=== PATIENT | female | born 1990 | race Caucasian/White ===

== ENCOUNTER 2016-06-30 06:47 | Observation (INO) | payer BC ==
[2016-06-30] MEDS ORDERED: Sodium Chloride 0.9% 10 ML Syringe FLUSH PRN (07:26)
[2016-06-30] MEDS ORDERED: Ondansetron 4 MG/2 ML SDV IVPUSH ONE ×2 (07:26→08:54)
[2016-06-30] MEDS ORDERED: HYDROmorphone 2 MG/ML Syringe IVPUSH ONE ×2 (07:26→09:47)
[2016-06-30] MEDS ORDERED: Sodium Chloride 0.9% 1,000 ML IV ONE ×2 (07:26→09:46)
[2016-06-30] MEDS ORDERED: Famotidine 20 MG/2 ML SDV IVPUSH ONE (07:26)
[2016-06-30] MEDS ORDERED: Sodium Chloride 0.9% 2.5 ML Syringe FLUSH PRN (07:26)
--- NOTE | 2016-06-30 07:30 | EDM.PDOC ---
ED HPI GENERAL MEDICAL PROBLEM - General Chief Complaint: Abdominal Pain Stated Complaint: ABDOMINAL PAIN Time Seen by Provider: 06/30/16 07:20 - History of Present Illness INITIAL COMMENTS - FREE TEXT/NARRATIVE: HISTORY AND PHYSICAL: History of present illness: The patient is a 26-year-old female with a diagnosis of gallstones back in March who also had an EGD here on April 11 and diagnosed with mild gastritis and esophagitis who was about to have her gallbladder removed with Dr. Fernandez but do to some "breast issues" that was put off until those were settled. She presents tonight with upper abdominal pain that started yesterday associated with intractable vomiting through the night. She says her pain is mostly epigastric but does radiate right and left and there is no lower abdominal pain. She has no flank pain dysuria frequency or hematuria. She's had no documented fevers but has had chills and has no cough or chest pain. She does not have any medication for nausea at home and did not take anything for pain as it would not stay down. The patient states the pain and vomiting similar to her gallbladder flareups. Patient denies any black or bloody stools and no the ground emesis or blood in the emesis. Patient states she is always more on the constipated side Review of systems: As per history of present illness and below otherwise all systems reviewed and negative. Past medical history: As per history of present illness and as reviewed below otherwise noncontributory. Surgical history: As per history of present illness and as reviewed below otherwise noncontributory. Social history: No reported history of drug or alcohol abuse. Family history: As per history of present illness and as reviewed below otherwise noncontributory. Physical exam: General: Well-developed well-nourished female looks uncomfortable in the room but is nontoxic and vital signs have been noted by me HEENT: Atraumatic, normocephalic, pupils reactive, negative for conjunctival pallor or scleral icterus, mucous membranes tacky, throat clear, neck supple, nontender, trachea midline. Lungs: Clear to auscultation, breath sounds equal bilaterally, chest nontender. Heart: S1S2, regular, negative for clicks, rubs, or JVD. Abdomen: Soft, nondistended, hypoactive bowel sounds, there is no tympany on percussion, there is tenderness on even mild palpation in the epigastrium and only slightly right and left upper abdomen area and there is some voluntary guarding but no involuntary guarding or rebound, there are no masses. Negative for masses or hepatosplenomegaly. Negative for costovertebral tenderness. Pelvis: Stable nontender. Genitourinary: Deferred. Rectal: Deferred. Extremities: Atraumatic, negative for cords or calf pain. Neurovascular unremarkable. Neuro: Awake, alert, oriented. Cranial nerves II through XII unremarkable. Cerebellum unremarkable. Motor and sensory unremarkable throughout. Exam nonfocal. Diagnostics: CBC CMP amylase lipase UA UCG CT scan of the abdomen and pelvis Therapeutics: IV fluids Zofran Pepcid Dilaudid Reglan Benadryl 0939: Case was discussed with Dr. Fernandez who knows this patient and he is currently out of town but is aware of the case now. He requests that Dr. Law come and see the patient 0941: Dr. Law is aware of this case and will come and evaluate the patient for further testing and care. Patient is aware of this plan. I would try Reglan Benadryl for her nausea and give her another dose of Dilaudid 1015: Dr. Law has seen the patient and would like her to be admitted as an observation patient for intractable pain and vomiting. She will decide further testing and care plan from there. Patient is aware of this and agrees Impression: Intractable pain and vomiting with history of gallstones Definitive disposition and diagnosis as appropriate pending reevaluation and review of above. Upper Abdominal Pain Score (Numeric/FACES): 8 - Related Data Allergies Allergy/AdvReac Type Severity Reaction Status Date / Time bacitracin Allergy Rash Verified 06/30/16 06:54 [From Neosporin ([id number])] bacitracin zinc Allergy Rash Verified 06/30/16 06:54 [From Neosporin ([id number])] latex Allergy Hives Verified 06/30/16 06:54 neomycin sulfate Allergy Rash Verified 06/30/16 06:54 [From Neosporin ([id number])] polymyxin B Allergy Rash Verified 06/30/16 06:54 [From Neosporin ([id number])] venom-honey bee Allergy Anaphylactic Verified 06/30/16 06:54 [bee venom (honey bee)] Shock Home Meds: Home Meds EPINEPHrine [Epipen 2-Adam] 1 injection SUBCUT ASDIRECTED PRN 04/09/16 [History] Ferrous Sulfate [Iron] 1 tab PO DAILY 04/09/16 [History] Melatonin 6 tab PO BEDTIME PRN 04/09/16 [History] Omeprazole 20 mg PO DAILY 04/09/16 [History] PNV95/Ferrous Fumarate/FA [ Vitamins Tablet] 1 tab PO DAILY 04/09/16 [ History] Past Medical History - Past Health History Medical/Surgical History: Denies Medical/Surgical History HEENT History: Reports: Other (see below) Other HEENT History: wears glasses/contacts Respiratory History: Reports: Asthma Gastrointestinal History: Reports: GERD Genitourinary History: [employer]ATING [employer] WORK[employer] History: Reports: Neurological History: Reports: Migraines Psychiatric History: Reports: PTSD Hematologic History: Reports: Other (see below) Other Hematologic History: Clotting problems - Past Surgical History Head Surgeries/Procedures: Reports: None HEENT Surgical History: Reports: Adenoidectomy, Myringotomy w tube(s), Tonsillectomy GI Surgical History: Reports: Bariatric procedure Social & Family History - Family History Family Medical History: Noncontributory - Tobacco Use Smoking Status *Q: Never Smoker Second Hand Smoke Exposure: No - Caffeine Use Caffeine Use: Reports: Coffee Caffeine Use Comment: 2cups/day - Recreational Drug Use Recreational Drug Use: No ED ROS GENERAL - Review of Systems Review Of Systems: ROS reveals no pertinent complaints other than HPI. ED EXAM, GENERAL - Physical Exam Exam: See Below (See dictation) Course - Vital Signs Last Recorded V/S: Last Vital Signs Temp 37.0 C 06/30/16 06:50 Pulse 71 06/30/16 06:50 Resp 18 06/30/16 06:50 BP 117/67 06/30/16 06:50 Pulse Ox 100 06/30/16 06:50 - Orders/Labs/Meds Orders: Active Orders 24 hr Category Date Time Status Patient Status [ADT] Stat ADT 06/30/16 10:20 Ordered Sodium Chloride 0.9% [Normal Saline] 1,000 ml Med 06/30/16 09:46 Active IV STAT Sodium Chloride 0.9% [Saline Flush] Med 06/30/16 07:26 Active 10 ml FLUSH ASDIRECTED PRN Sodium Chloride 0.9% [Saline Flush] Med 06/30/16 07:26 Active 2.5 ml FLUSH ASDIRECTED PRN Saline Lock Insert [OM.PC] Stat Oth 06/30/16 07:25 Ordered Medication Orders Sodium Chloride (Normal Saline) 1,000 mls @ 999 mls/hr IV STAT ONE Stop: 06/30/16 10:46 Last Admin: 06/30/16 10:08 Dose: 999 mls/hr Sodium Chloride (Saline Flush) 10 ml FLUSH ASDIRECTED PRN PRN Reason: Keep Vein Open Last Admin: 06/30/16 07:41 Dose: 10 ml Sodium Chloride (Saline Flush) 2.5 ml FLUSH ASDIRECTED PRN PRN Reason: Keep Vein Open Last Admin: 06/30/16 07:46 Dose: 2.5 ml Labs: Laboratory Tests 06/30/16 06/30/16 06/30/16 Range/Units 07:05 07:20 07:35 WBC 6.18 (4.0-11.0) K/uL RBC 4.81 (4.30-5.90) M/uL Hgb 12.8 (12.0-16.0) g/dL Hct 39.1 (36.0-46.0) % MCV 81.3 (80.0-98.0) fL MCH 26.6 L (27.0-32.0) pg MCHC 32.7 (31.0-37.0) g/dL RDW Std Deviation 38.1 (28.0-62.0) fl RDW Coeff of Jossy 13 (11.0-15.0) % Plt Count 203 (150-400) K/uL MPV 12.60 H (7.40-12.00) fL Neut % (Auto) 73.3 (48.0-80.0) % Lymph % (Auto) 18.9 (16.0-40.0) % [place] % (Auto) 7.4 (0.0-15.0) % Eos % (Auto) 0.2 (0.0-7.0) % Baso % (Auto) 0.2 (0.0-1.5) % Neut # 4.5 (1.4-5.7) K/uL Lymph # 1.2 (0.6-2.4) K/uL [place] # 0.5 (0.0-0.8) K/uL Eos # 0.0 (0.0-0.7) K/uL Baso # 0.0 (0.0-0.1) K/uL Nucleated RBC % 0.0 /100WBC Nucleated RBCs # 0 K/uL Sodium (136-146) mmol/L Potassium (3.5-5.1) mmol/L Chloride (98-110) mmol/L Carbon Dioxide (21-31) mmol/L BUN (6.0-23.0) mg/dL Creatinine (0.6-1.5) mg/dL Est Cr Clr Drug Dosing mL/min Estimated GFR (MDRD) ml/min Glucose (60-110) mg/dL Calcium (8.8-10.8) mg/dL Total Bilirubin (0.1-1.5) mg/dL AST (5-40) IU/L ALT (8-54) IU/L Alkaline Phosphatase (40-150) Total Protein (6.0-8.0) g/dL Albumin (3.5-5.0) g/dL Globulin (2.0-3.5) g/dL Albumin/Globulin Ratio (1.3-2.8) Amylase (10-90) U/L Lipase (7-80) U/L Urine Color YELLOW Urine Appearance CLEAR Urine pH 6.0 (5.0-8.0) Ur Specific [place] 1.025 (1.001-1.035) Urine Protein NEGATIVE (NEGATIVE) mg/dL Urine Glucose (UA) NEGATIVE (NEGATIVE) mg/dL Urine Ketones 15 H (NEGATIVE) mg/dL Urine Occult Blood NEGATIVE (NEGATIVE) Urine Nitrite NEGATIVE (NEGATIVE) Urine Bilirubin SMALL H (NEGATIVE) Urine Urobilinogen 4.0 H (<2.0) EU/dL Ur Leukocyte Esterase NEGATIVE (NEGATIVE) Urine RBC 0-2 (0-2/HPF) Urine WBC 0-2 (0-5/HPF) Ur Epithelial Cells FEW (NONE-FEW) Urine Bacteria FEW (NEGATIVE) Urine HCG, Qual NEGATIVE (NEGATIVE) 06/30/16 Range/Units 07:35 WBC (4.0-11.0) K/uL RBC (4.30-5.90) M/uL Hgb (12.0-16.0) g/dL Hct (36.0-46.0) % MCV (80.0-98.0) fL MCH (27.0-32.0) pg MCHC (31.0-37.0) g/dL RDW Std Deviation (28.0-62.0) fl RDW Coeff of Jossy (11.0-15.0) % Plt Count (150-400) K/uL MPV (7.40-12.00) fL Neut % (Auto) (48.0-80.0) % Lymph % (Auto) (16.0-40.0) % [place] % (Auto) (0.0-15.0) % Eos % (Auto) (0.0-7.0) % Baso % (Auto) (0.0-1.5) % Neut # (1.4-5.7) K/uL Lymph # (0.6-2.4) K/uL [place] # (0.0-0.8) K/uL Eos # (0.0-0.7) K/uL Baso # (0.0-0.1) K/uL Nucleated RBC % /100WBC Nucleated RBCs # K/uL Sodium 141 (136-146) mmol/L Potassium 3.6 (3.5-5.1) mmol/L Chloride 108 (98-110) mmol/L Carbon Dioxide 23 (21-31) mmol/L BUN 16 (6.0-23.0) mg/dL Creatinine 0.7 (0.6-1.5) mg/dL Est Cr Clr Drug Dosing 101.14 mL/min Estimated GFR (MDRD) > 60.0 ml/min Glucose 105 (60-110) mg/dL Calcium 9.5 (8.8-10.8) mg/dL Total Bilirubin 1.5 (0.1-1.5) mg/dL AST 627 H (5-40) IU/L ALT 830 H (8-54) IU/L Alkaline Phosphatase 142 (40-150) Total Protein 7.8 (6.0-8.0) g/dL Albumin 4.6 (3.5-5.0) g/dL Globulin 3.2 (2.0-3.5) g/dL Albumin/Globulin Ratio 1.4 (1.3-2.8) Amylase 53 (10-90) U/L Lipase 66 (7-80) U/L Urine Color Urine Appearance Urine pH (5.0-8.0) Ur Specific [place] (1.001-1.035) Urine Protein (NEGATIVE) mg/dL Urine Glucose (UA) (NEGATIVE) mg/dL Urine Ketones (NEGATIVE) mg/dL Urine Occult Blood (NEGATIVE) Urine Nitrite (NEGATIVE) Urine Bilirubin (NEGATIVE) Urine Urobilinogen (<2.0) EU/dL Ur Leukocyte Esterase (NEGATIVE) Urine RBC (0-2/HPF) Urine WBC (0-5/HPF) Ur Epithelial Cells (NONE-FEW) Urine Bacteria (NEGATIVE) Urine HCG, Qual (NEGATIVE) Meds: Medications Generic Name Dose Route Start Last Admin Trade Name Freq PRN Reason Stop Dose Admin Sodium Chloride 1,000 mls @ 999 mls/hr 06/30/16 09:46 06/30/16 10:08 Normal Saline IV 06/30/16 10:46 999 mls/hr STAT ONE Administration Sodium Chloride 10 ml 06/30/16 07:26 06/30/16 07:41 Saline Flush FLUSH 10 ml ASDIRECTED PRN Administration Keep Vein Open Sodium Chloride 2.5 ml 06/30/16 07:26 06/30/16 07:46 Saline Flush FLUSH 2.5 ml ASDIRECTED PRN Administration Keep Vein Open Discontinued Medications Generic Name Dose Route Start Last Admin Trade Name Freq PRN Reason Stop Dose Admin Diphenhydramine HCl 25 mg 06/30/16 09:46 06/30/16 10:03 Benadryl IVPUSH 06/30/16 09:47 25 mg ONETIME ONE Administration Famotidine 20 mg 06/30/16 07:26 06/30/16 07:39 Pepcid IVPUSH 06/30/16 07:27 20 mg ONETIME ONE Administration Hydromorphone HCl 1 mg 06/30/16 07:26 06/30/16 08:02 Dilaudid IVPUSH 06/30/16 07:27 1 mg ONETIME ONE Administration Hydromorphone HCl 1 mg 06/30/16 09:47 06/30/16 10:14 Dilaudid IVPUSH 06/30/16 09:48 1 mg ONETIME ONE Administration Sodium Chloride 1,000 mls @ 999 mls/hr 06/30/16 07:26 06/30/16 07:39 Normal Saline IV 06/30/16 08:26 999 mls/hr STAT ONE Administration Iopamidol 100 ml 06/30/16 07:49 06/30/16 07:52 Isovue Multipack-370 (76%) IVPUSH 06/30/16 07:50 65 ml ONETIME STA Administration Metoclopramide HCl 10 mg 06/30/16 09:46 06/30/16 10:03 Reglan IV 06/30/16 09:47 10 mg ONETIME ONE Administration Ondansetron HCl 4 mg 06/30/16 07:26 06/30/16 07:39 Zofran IVPUSH 06/30/16 07:27 4 mg ONETIME ONE Administration Ondansetron HCl 4 mg 06/30/16 08:54 06/30/16 08:58 Zofran IVPUSH 06/30/16 08:55 4 mg ONETIME ONE Administration Departure - Departure Time of Disposition: 10:23 Disposition: Refer to Observation Condition: fair Clinical Impression: Vomiting Qualifiers: Vomiting type: unspecified Vomiting Intractability: intractable Nausea presence : with nausea Qualified Code(s): R11.2 - Nausea with vomiting, unspecified Abdominal pain Qualifiers: Abdominal location: epigastric Qualified Code(s): R10.13 - Epigastric pain Forms: ED Department Discharge - My Orders Last 24 Hours: My Active Orders 06/30/16 07:25 Saline Lock Insert [OM.PC] Stat 06/30/16 07:26 Sodium Chloride 0.9% [Saline Flush] 10 ml FLUSH ASDIRECTED PRN Sodium Chloride 0.9% [Saline Flush] 2.5 ml FLUSH ASDIRECTED PRN 06/30/16 09:46 Sodium Chloride 0.9% [Normal Saline] 1,000 ml IV STAT 06/30/16 10:20 Patient Status [ADT] Stat - Assessment/Plan Last 24 Hours: My Active Orders 06/30/16 07:25 Saline Lock Insert [OM.PC] Stat 06/30/16 07:26 Sodium Chloride 0.9% [Saline Flush] 10 ml FLUSH ASDIRECTED PRN Sodium Chloride 0.9% [Saline Flush] 2.5 ml FLUSH ASDIRECTED PRN 06/30/16 09:46 Sodium Chloride 0.9% [Normal Saline] 1,000 ml IV STAT 06/30/16 10:20 Patient Status [ADT] Stat
[2016-06-30] MEDS ORDERED: Iopamidol 755 MG/ML 500 ML Multipack Bottle IVPUSH STA (07:49)
[2016-06-30 08:23] LABS: CHLORIDE,CL 108 mmol/L (98-110); SODIUM,NA 141 mmol/L (136-146)
--- NOTE | 2016-06-30 09:32 | CT ---
CT of the abdomen and pelvis with contrast. HISTORY: Pain TECHNIQUE: Axial CT images were obtained of the abdomen and pelvis following administration of 65 mL of Isovue-370 without complication. Coronal and sagittal reconstructions obtained. FINDINGS: The lung bases are clear, no pleural effusion. The liver, spleen, and adrenal glands appear normal. There is a trace periportal edema. There is a s mall amount of pericholecystic fluid also noted with gallstones noted within the gallbladder. The ki dneys enhance and function symmetrically without evidence of obstructive uropathy. No bulky retroper itoneal lymphadenopathy or abdominal ascites. The large and small bowel are normal in caliber without evidence of obstruction. No focal pericoloni c inflammation. Appendix appears normal. Postsurgical changes are noted secondary to gastric sleeve. The urinary bladder is decompressed. The uterus and ovaries appear grossly normal. No suspicious os seous abnormalities identified. IMPRESSION: 1. Cholelithiasis with mild pericholecystic fluid, correlate for acute cholecystitis. 2. Otherwise grossly unremarkable CT abdomen and pelvis.
[2016-06-30] MEDS ORDERED: diphenhydrAMINE 50 MG/ML SDV IVPUSH ONE (09:46)
[2016-06-30] MEDS ORDERED: Metoclopramide 10 MG/2 ML SDV IV ONE (09:46)
[2016-06-30] MEDS ORDERED: Metoclopramide 10 MG/2 ML SDV IVPUSH PRN (10:21)
[2016-06-30] MEDS ORDERED: diphenhydrAMINE 50 MG/ML SDV IVPUSH PRN (10:21)
[2016-06-30] MEDS ORDERED: Acetaminophen/HYDROcodone 325-5 MG Tab PO PRN (10:21)
[2016-06-30] MEDS ORDERED: Ondansetron 4 MG/2 ML SDV IVPUSH PRN (10:21)
[2016-06-30] MEDS ORDERED: Promethazine 25 MG/ML SDV IM PRN (10:25)
[2016-06-30] MEDS ORDERED: Scopolamine 1.5 MG Transdermal Patch TRDERM PRN (10:26)
[2016-06-30] MEDS ORDERED: Dextrose 5%-Lactated Ringers 1,000 ML IV SCH (10:30)
--- NOTE | 2016-06-30 13:31 | NM ---
EXAMINATION: Nuclear medicine hepatobiliary study ([facility]) HISTORY: Rule out cholecystitis or biliary obstruction. Pain. PROCEDURE: Following intravenous administration of 3.9 mCi of technetium 99m Choletec, dynamic images were obt ained up to one-hour post injection. FINDINGS: The initial dynamic images demonstrates clearance of the tracer from the blood pool with the prompt tracer uptake by the liver. No activity is noted within the gallbladder. No significant activity is also noted within the biliary tree or small bowel. IMPRESSION: 1. The gallbladder is not visualized, this could be secondary to cystic duct obstruction/acute renee cystitis. 2. The common bile duct is also not well visualized with no activity in the small bowel, this could represent biliary obstruction. However the patient also received opiates, which could also explain n o emptying into the small bowel.
[2016-06-30] MEDS: HYDROmorphone/Normal Saline 6 MG/30 ML PCA Vial IV PRN ×2 (13:51→16:14)
[2016-06-30] MEDS ORDERED: Piperacillin/Tazobactam 3.375 GM in Sodium Chloride 0.9% 50 ML IV SCH (14:00)
[2016-06-30 16:52] LABS: CHLORIDE,CL 111 mmol/L (98-110); SODIUM,NA 140 mmol/L (136-146)
[2016-06-30 17:00] VITALS: BP 118/70
--- NOTE | 2016-06-30 18:37 | PCM.HP ---
H&P History of Present Illness - General Date of Service: 06/30/16 Admit Problem/Dx: Admission Diagnosis/Problem Admission Diagnosis/Problem Nausea and vomiting Source of Information: Patient History Limitations: Reports: No limitations - History of Present Illness Initial Comments - Free Text/Narative: Patient is a 26 yo female who presented with 1 day history of epigastric pain associated with intractable nausea and vomiting. She has a history of a gastric sleeve performed in [place] in either [id number]. She had known choledocholithiasis and was going to have an elective cholecystectomy after genetic testing for BRCA mutation. She developed sharp upper abdominal pain and intractable nausea and vomiting last evening. She presented to the ED. She denies fevers, chills, chest pain, SOB or diarrhea. She had a CT of the abdomen pelvis that showed mild pericholecystic fluid. Upper Abdominal Pain Score (Numeric/FACES): 1 - Related Data Allergies/Adverse Reactions: Allergies Allergy/AdvReac Type Severity Reaction Status Date / Time bacitracin Allergy Rash Verified 06/30/16 06:54 [From Neosporin ([id number])] bacitracin zinc Allergy Rash Verified 06/30/16 06:54 [From Neosporin ([id number])] latex Allergy Hives Verified 06/30/16 06:54 neomycin sulfate Allergy Rash Verified 06/30/16 06:54 [From Neosporin ([id number])] polymyxin B Allergy Rash Verified 06/30/16 06:54 [From Neosporin ([id number])] venom-honey bee Allergy Anaphylactic Verified 06/30/16 06:54 [bee venom (honey bee)] Shock Home Medications: Home Meds EPINEPHrine [Epipen 2-Adam] 1 injection SUBCUT ASDIRECTED PRN 04/09/16 [History] Ferrous Sulfate [Iron] 1 tab PO DAILY 04/09/16 [History] Melatonin 6 tab PO BEDTIME PRN 04/09/16 [History] Omeprazole 20 mg PO DAILY 04/09/16 [History] PNV95/Ferrous Fumarate/FA [ Vitamins Tablet] 1 tab PO DAILY 04/09/16 [ History] Past Medical History - Past Health History Medical/Surgical History: Denies Medical/Surgical History HEENT History: Reports: Other (see below) Other HEENT History: wears glasses/contacts Respiratory History: Reports: Asthma Gastrointestinal History: Reports: GERD Genitourinary History: [employer] SAL[employer]ERSON History: Reports: Neurological History: Reports: Migraines Psychiatric History: Reports: PTSD Hematologic History: Reports: Other (see below) Other Hematologic History: Clotting problems - Past Surgical History Head Surgeries/Procedures: Reports: None HEENT Surgical History: Reports: Adenoidectomy, Myringotomy w tube(s), Tonsillectomy GI Surgical History: Reports: Bariatric procedure, Other (see below) Other GI Surgeries/Procedures: [place]. Social & Family History - Family History Family Medical History: Noncontributory - Tobacco Use Smoking Status *Q: Never Smoker Second Hand Smoke Exposure: No - Caffeine Use Caffeine Use: Reports: Coffee Caffeine Use Comment: 2cups/day - Recreational Drug Use Recreational Drug Use: No H&P Review of Systems - Review of Systems: Review Of Systems: See Below General: Reports: malaise, fatigue, decreased appetite HEENT: Reports: no symptoms Pulmonary: Reports: No Symptoms Cardiovascular: Reports: no symptoms Gastrointestinal: Reports: Abdominal pain, Decreased appetite, Nausea, Vomiting Genitourinary: Reports: no symptoms Musculoskeletal: Reports: no symptoms Skin: Reports: no symptoms Exam - Exam Exam: See Below - Vital Signs Vital Signs: Last Vital Signs Temp 36.6 C 06/30/16 16:00 Pulse 72 06/30/16 10:57 Resp 16 06/30/16 16:00 BP 118/70 06/30/16 16:00 Pulse Ox 96 06/30/16 16:00 Weight: 57.017 kg - Exam General: alert, oriented, mild distress HEENT: Conjunctiva clear, Hearing intact, Mucosa moist & pink, Posterior pharynx clear Neck: supple Lungs: Clear to auscultation, Normal respiratory effort Cardiovascular: regular rate, regular rhythm Abdomen: soft, other (Mild to moderate abdominal pain in epigastric area. No murphys sign. ) Back Exam: normal inspection Extremities: normal inspection - Patient Data Lab Results last 24 hrs: Laboratory Results - last 24 hr 06/30/16 Range/Units 16:21 Sodium 140 (136-146) mmol/L Potassium 3.7 (3.5-5.1) mmol/L Chloride 111 H (98-110) mmol/L Carbon Dioxide 23 (21-31) mmol/L BUN 8 (6.0-23.0) mg/dL Creatinine 0.6 (0.6-1.5) mg/dL Est Cr Clr Drug Dosing 126.73 mL/min Estimated GFR (MDRD) > 60.0 ml/min Glucose 105 (60-110) mg/dL Calcium 8.2 L (8.8-10.8) mg/dL Total Bilirubin 2.1 H (0.1-1.5) mg/dL AST 582 H (5-40) IU/L ALT 751 H (8-54) IU/L Alkaline Phosphatase 133 (40-150) Total Protein 6.0 (6.0-8.0) g/dL Albumin 3.6 (3.5-5.0) g/dL Globulin 2.4 (2.0-3.5) g/dL Albumin/Globulin Ratio 1.5 (1.3-2.8) Result Diagrams: 06/30/16 07:35 06/30/16 16:21 *Q Meaningful Use (ADM) - VTE *Q VTE Criteria *Q: - Stroke *Q Stroke Criteria *Q: - AMI *Q AMI Criteria *Q: - Problem List (1) Elevated LFTs SNOMED Code(s): 667377321 ICD Code: R94.5 - ABNORMAL RESULTS OF LIVER FUNCTION STUDIES Status: Acute Current Visit: Yes (2) Choledocholithiasis SNOMED Code(s): 459980121 ICD Code: K80.50 - CALCULUS OF BILE DUCT W/O CHOLANGITIS OR CHOLECYST W/O OBST Status: Acute Current Visit: Yes (3) Acute cholecystitis SNOMED Code(s): 09673453 ICD Code: K81.0 - ACUTE CHOLECYSTITIS Status: Acute Current Visit: Yes (4) Elevated bilirubin SNOMED Code(s): 023931804 ICD Code: R17 - UNSPECIFIED JAUNDICE Status: Acute Current Visit: Yes Problem List Initiated/Reviewed/Updated: Yes Orders Last 24hrs: Active Orders 24 hr Category Date Time Status Patient Status [ADT] Routine ADT 06/30/16 10:21 Active Ambulate [RC] ASDIRECTED Care 06/30/16 10:21 Active Intake and Output [RC] Q12H Care 06/30/16 10:21 Active Oxygen Therapy [RC] PRN Care 06/30/16 10:21 Active Pulse Oximetry [RC] CONTINUOUS Care 06/30/16 10:21 Active RT Incentive Spirometry [RC] ASDIRECTED Care 06/30/16 10:21 Active Nothing Per Oral Diet [DIET] Diet 06/30/16 Lunch Active Abdomen w wo Cont [MR] Urgent Exams 06/30/16 13:54 Ordered CBC WITH AUTO DIFF [HEME] AM Lab 07/01/16 05:11 Ordered COMPREHENSIVE METABOLIC PN,CMP [CHEM] AM Lab 07/01/16 05:11 Ordered MAGNESIUM [CHEM] AM Lab 07/01/16 05:11 Ordered PHOSPHORUS [CHEM] AM Lab 07/01/16 05:11 Ordered Acetaminophen/HYDROcodone [[place] 325-5 MG] Med 06/30/16 10:21 Active 2 tab PO Q4H PRN Dextrose 5%-Lactated Ringers 1,000 ml Med 06/30/16 10:30 Active IV ASDIRECTED HYDROmorphone/Normal Saline [Dilaudid CHILDR[employer] PROGRAM COORDINATOR 6 MG in NS 30 Med 06/30/16 10:26 Active ML] 6 mg IV ASDIRECTED PRN Metoclopramide [Reglan] Med 06/30/16 10:21 Active 10 mg IVPUSH Q6H PRN Ondansetron [Zofran] Med 06/30/16 10:21 Active 4 mg IVPUSH Q4H PRN Piperacillin/Tazobactam [Piperacil-Tazobact] 3.375 gm Med 06/30/16 14:00 Active Sodium Chloride 0.9% [Normal Saline] 50 ml IV Q8H Promethazine [Phenergan] Med 06/30/16 10:25 Active 12.5 mg IM Q4H PRN Scopolamine [Transderm-Scop] Med 06/30/16 10:26 Active 1.5 mg TRDERM Q72H PRN diphenhydrAMINE [Benadryl] Med 06/30/16 10:21 Active 25 mg IVPUSH Q4H PRN Resuscitation Status Routine Resus Stat 06/30/16 10:21 Ordered Medication Orders Acetaminophen/Hydrocodone Bitart ([place] 325-5 Mg) 2 tab PO Q4H PRN PRN Reason: Pain (moderate 4-6) Diphenhydramine HCl (Benadryl) 25 mg IVPUSH Q4H PRN PRN Reason: Itching Hydromorphone HCl (Dilaudid [employer] Clerk 6 Mg In Ns 30 Ml) 6 mg IV ASDIRECTED PRN; Protocol PRN Reason: Abdominal Pain Last Admin: 06/30/16 16:14 Dose: 6 mg Admin: 06/30/16 13:51 Dose: 6 mg Dextrose/Lactated Ringer's (Dextrose 5%-Lactated Ringers) 1,000 mls @ 125 mls/ hr IV ASDIRECTED BENOIT Last Admin: 06/30/16 11:04 Dose: 125 mls/hr Piperacillin Sod/Tazobactam (Sod 3.375 gm/ Sodium Chloride) 50 mls @ 100 mls/ hr IV Q8H [facility] Last Admin: 06/30/16 14:31 Dose: 100 mls/hr Metoclopramide HCl (Reglan) 10 mg IVPUSH Q6H PRN PRN Reason: Nausea/Vomiting Ondansetron HCl (Zofran) 4 mg IVPUSH Q4H PRN PRN Reason: Nausea/Vomiting Last Admin: 06/30/16 13:31 Dose: 4 mg Promethazine HCl (Phenergan) 12.5 mg IM Q4H PRN PRN Reason: Nausea/Vomiting Scopolamine (Transderm-Scop) 1.5 mg TRDERM Q72H PRN PRN Reason: Nausea/Vomiting Last Admin: 06/30/16 10:58 Dose: 1.5 mg Sodium Chloride (Saline Flush) 10 ml FLUSH ASDIRECTED PRN PRN Reason: Keep Vein Open Last Admin: 06/30/16 07:41 Dose: 10 ml Sodium Chloride (Saline Flush) 2.5 ml FLUSH ASDIRECTED PRN PRN Reason: Keep Vein Open Last Admin: 06/30/16 07:46 Dose: 2.5 ml Assessment/Plan Comment:: A HIDA was obtained that showed no filling of the GB and CBD. At the time, however, she had received Dilaudid and this could have skewed the results. An MRCp was ordered but cancelled due to surgical carine that were placed in [place] (unknown if these are MRI compatible). Repeat am labs showed slightly bilirubin elevation and slightly lower LFTs. Her pain, nausea and vomiting have slightly improved. Given my concern for possible choledocholithiasis in the light of elevated LFTs and a rising bilirubin I feel the best next step is to transfer her to a facility with ERCP capabilities. I discussed her case with the GI physician and hospitalists and frannie who have accepted her.
--- NOTE | 2016-07-07 09:14 | HP ---
DATE OF : 1990 PRIMARY CARE PHYSICIAN: Katelyn PCP CHIEF COMPLAINT: Nausea and vomiting. HISTORY OF PRESENT ILLNESS: The patient is a 26-year-old female with a past medical history significant for cholelithiasis and sleeve gastrectomy. She was seen in March with a diagnosis of cholelithiasis. She had an EGD performed on April 11 which diagnosed mild gastritis and esophagitis. The patient was in consultation with my partner Dr. Livan Fernandez for an elective laparoscopic cholecystectomy. The patient was being worked up for hereditary breast issues and the surgery was delayed. She presents today with upper abdominal pain that started yesterday associated with intractable nausea, vomiting through the night. Her pain is mainly located in the epigastric area but does radiate to her back. She denies any fevers, chills, cough, chest pain, or urinary symptoms. The patient denies being . The patient states that the pain is similar to her previous gallbladder flares. The patient denies any hematemesis or coffee-ground appearance to the emesis. REVIEW OF SYSTEMS: A 10-point review of systems negative other than stated above in the HPI. PAST MEDICAL HISTORY: Obesity, status post sleeve gastrectomy, gastritis, esophagitis, cholelithiasis. PAST SURGICAL HISTORY: Sleeve gastrectomy, EGD, adenoidectomy, myringotomy with tubes, and tonsillectomy. ALLERGIES: Bacitracin, bacitracin zinc, latex, neomycin, polymyxin, bee venom. FAMILY HISTORY: Significant for multiple female members of the family having breast cancer and aortic issues. The patient has had an angiogram in the past with no evidence of any abnormalities. SOCIAL HISTORY: Denies smoking or drug use. PHYSICAL EXAMINATION: VITAL SIGNS: Temperature 36.3 degree Celsius, pulse 87, blood pressure 117/57, respirations 18, sats 98% on room air. GENERAL: The patient is a well-developed young female, in mild distress. HEENT: Head normocephalic and atraumatic. Ears and nose normal externally. Pupils equal, round, reactive to light. Conjunctivae clear. Mouth, mucous membranes moist. LUNGS: Clear to auscultation bilaterally. HEART: Regular rate and rhythm. ABDOMEN: Flat, soft, mildly tender in the epigastric area with some voluntary guarding. No Lee sign. BACK: No costovertebral angle tenderness. Back appears normal. EXTREMITIES: Warm and well perfused. LABORATORY: CBC; white blood count 6.18, hemoglobin 12.8, platelet count 203, neutrophil percent 73.3. BMP within normal limits. LFTs; AST 627, ALT 830, bilirubin 1.5. Amylase 53, lipase 66. UA; urine ketones 15, urine bilirubin small, urobilinogen 4.0. CT of the abdomen and pelvis, impression cholelithiasis with mild pericholecystic fluid. Correlate for acute cholecystitis to. Otherwise, grossly normal CT of the abdomen and pelvis. ASSESSMENT: 1. Intractable nausea and vomiting. 2. Mild epigastric pain. The patient's signs and symptoms are concerning for either symptomatic cholelithiasis or mild acute cholecystitis. We will admit the patient for IV fluids and control of her nausea. We will also order a HIDA scan to rule out acute cholecystitis. We would like to see that the patient's LFTs return to normal. At this point in time, they do not suggest any active obstruction but possibly a recent choledochal stone that has passed. We will keep the patient n.p.o. Should she need surgery, we will do this once she has been fluid resuscitated and her liver enzymes are improving. CHANDU PYLE /[id number]
== END 2016-06-30 19:30 ==
LOC: MW.ED 06:47 → MW.MS 10:20
PROVIDERS: ADMIT Surgery; ATTEND Surgery
DX: K80.62 Calculus of gallbladder and bile duct with acute cholecystitis without obstruction (principal); R94.5 Abnormal results of liver function studies; R17 Unspecified jaundice; J45.909 Unspecified asthma, uncomplicated; K21.9 Gastro-esophageal reflux disease without esophagitis; Z88.1 Allergy status to other antibiotic agents; Z91.030 Bee allergy status; Z79.899 Other long term (current) drug therapy; Z98.84 Bariatric surgery status; Z90.89 Acquired absence of other organs; Z98.890 Other specified postprocedural states
CPT/HCPCS: 36415; 74177; 78226; 80053; 81001; 81025; 82150; 83690; 85025; 96361; 96365; 96375; 96376; 99285; A9270; A9537; G0378; J1170; J1200; J2405; J2543; J2765; J7040; J7042; J7050; Q9967; 96374

== ENCOUNTER → 2016-07-08 | Outpatient (CLI) | payer BC ==
[2016-07-08 10:54] LABS: CHLORIDE,CL 105 mmol/L (98-110); SODIUM,NA 140 mmol/L (136-146)
== END ==
LOC: MW.LAB 10:14
PROVIDERS: ATTEND Nurse Practitioner Family
DX: Z48.815 Encounter for surgical aftercare following surgery on the digestive system (principal); Z90.49 Acquired absence of other specified parts of digestive tract
CPT/HCPCS: 36415; 80053

== ENCOUNTER 2022-10-09 10:16 | Day surgery (SDC) | payer BC ==
[~2022-10-09 10:16] MED LIST: Lactated Ringers 1,000 ML IV SCH; Propofol 200 MG/20 ML SDV ONE; Sodium Chloride 0.9% 10 ML Syringe FLUSH PRN; Sodium Chloride 0.9% 2.5 ML Syringe FLUSH PRN; Sodium Chloride 0.9% 20 ML SDV IV PRN
[2022-10-09] MEDS ORDERED: Dexmedetomidine 200 MCG/2 ML SDV ONE (10:17)
[2022-10-09] MEDS ORDERED: Lidocaine 2% 5 ML SDV ONE (11:13)
[2022-10-09 12:30] VITALS: BP 111/65; PULSE 71
== END 2022-10-09 12:05 | disposition home or self-care (01) ==
LOC: MW.SDS 10:16
PROVIDERS: ATTEND Surgery
DX: K44.9 Diaphragmatic hernia without obstruction or gangrene (principal); K21.9 Gastro-esophageal reflux disease without esophagitis; K31.89 Other diseases of stomach and duodenum; F41.9 Anxiety disorder, unspecified; F32.A Depression, unspecified; G47.00 Insomnia, unspecified; G47.30 Sleep apnea, unspecified; F43.10 Post-traumatic stress disorder, unspecified; E66.9 Obesity, unspecified; G43.909 Migraine, unspecified, not intractable, without status migrainosus; Z90.49 Acquired absence of other specified parts of digestive tract; Z91.040 Latex allergy status; Z79.899 Other long term (current) drug therapy; Z90.89 Acquired absence of other organs; Z91.030 Bee allergy status; Z88.1 Allergy status to other antibiotic agents; Z68.32 Body mass index [BMI] 32.0-32.9, adult
CPT/HCPCS: 43239; 81025; J2704; J7120; J3490